=== PATIENT | male | born 1970 | race Caucasian/White ===

== ENCOUNTER 2017-03-05 12:12 | Emergency (ER) | payer MEDICARE ==
[~2017-03-05] VITALS: Ht 182.9 cm; Wt 80.0 kg
[2017-03-05 12:15] VITALS: BP 128/74; PULSE 82; RESP 16; TEMP 98.4; O2SAT 100
--- NOTE | 2017-03-05 12:51 | PD ---
HPI Chief Complaint: Oral / Dental Pain or Problem Time Seen by Provider: 12:50 Travel History International Travel<30 days: No Contact w/Intl Traveler<30days: No Traveled to known affect area: No History of Present Illness HPI 47 YO M presents to the ED for evaluation of 2 day history of dental pain and right-sided facial swelling. Patient endorses "terrible teeth." He denies any acute injury to the area. Denies fever, chills, nausea, vomiting, difficulties swallowing his own secretions. No treatment attempted home. He does not currently have a dentist. PFSH Social History Tobacco Use: Yes Allergies-Medications (Allergen,Severity, Reaction): Uncoded Allergies: MYCIN (Allergy, Intermediate, Rash, 03/05/17) Steroid(unknow) (Allergy, Unknown, 03/05/17) Reported Meds & Prescriptions Reported Meds & Active Scripts Active Penicillin V Potassium 500 Mg Tab 500 Mg PO Q6H 7 Days Ibuprofen 800 Mg Tab 800 Mg PO Q8H Reported Ibuprofen 400 Mg Tab 400 Mg PO DAILY Gabapentin 300 Mg Cap 300 Mg PO TID Review of Systems Except as stated in HPI: all other systems reviewed are Neg Physical Exam Narrative GENERAL: Well-nourished, well-developed white male in no acute distress. SKIN: Focused skin assessment warm/dry. HEAD: Normocephalic. EYES: No scleral icterus. No injection or drainage. ENT: Mucosa pink and moist. No erythema or exudates. No uvular edema. No uvular , palatal, or tonsillar deviation. Airway patent. DENTAL: Terrible overall dentition. Multiple missing and chipped teeth. Multiple dental caries. Erythema, edema and tenderness of the right-sided buccal mucosa. Mild swelling of the right cheek. No fluctuance or pointing or drainage noted. NECK: Supple, trachea midline. No JVD or lymphadenopathy. CARDIOVASCULAR: Regular rate and rhythm without murmurs, gallops, or rubs. RESPIRATORY: Breath sounds equal bilaterally. No accessory muscle use. GASTROINTESTINAL: Abdomen soft, non-tender, nondistended. MUSCULOSKELETAL: No cyanosis, or edema. BACK: Nontender without obvious deformity. No CVA tenderness. Data Data Last Documented VS Vital Signs Date Time Temp Pulse Resp B/P Pulse Ox O2 Delivery O2 Flow Rate FiO2 03/05/17 12:15 98.4 82 16 128/74 100 Orders Ibuprofen (Motrin) (03/05/17 13:15) Penicillin V Potassium (Veetids) (03/05/17 13:15) MDM Medical Decision Making Medical Screen Exam Complete: Yes Emergency Medical Condition: Yes Differential Diagnosis dental abscess versus dental caries versus facial cellulitis versus dental fracture versus other Narrative Course 47 YO M presents to the ED for evaluation of 2 day history of dental pain and right-sided facial swelling. Patient endorses "terrible teeth." Vitals reviewed. Exam consistent with dental abscess, no fluctuance noted. Patient was prescribed penicillin G 500 mg 3 times a day 7 days course of anti- inflammatories. First doses administered in the ED. He was provided outpatient dental resources. He is instructed to apply warm compresses, use warm saltwater gargles, take antibiotics and anti-inflammatories as prescribed, follow up with a dentist. He is stable and discharged home. Diagnosis Primary Impression: Dental abscess Referrals: Dentist Patient Instructions: Dental Abscess (ED), Dental Caries (ED), General Instructions Additional Instructions: Rest, hydrate. Take all antibiotics as prescribed, even if it comes resolved. Warm compresses and warm salt water mouth rinses a few times per day. 800 mg ibuprofen up to 3 times a day to reduce inflammation and pain. Follow-up with a dentist as discussed. Return to the ED for any urgent or emergent medical condition. Med/Other Pt SpecificInfo: Prescription(s) given Scripts Penicillin V Potassium 500 Mg [id number] Mg PO Q6H 7 Days Ref 0 Prov:Bessy Mancia MD 03/05/17 Ibuprofen 800 Mg [id number] Mg PO Q8H #15 TAB Ref 0 Prov:Bessy Mancia MD 03/05/17 Disposition: 01 DISCHARGE HOME Condition: Stable Betzy Rothman Mar 05, 2017 12:51
[2017-03-05] MEDS ORDERED: GABA300C5 PO (12:52)
[2017-03-05] MEDS ORDERED: IBUP400T20 PO (12:52)
[2017-03-05] MEDS ORDERED: CLIN1CAP5 PO (13:08)
[2017-03-05] MEDS ORDERED: IBUP800T23 PO (13:08)
[2017-03-05] MEDS ORDERED: PENI500T PO (13:10)
--- NOTE | 2017-03-05 13:13 | PD ---
Data Data Last Documented VS Vital Signs Date Time Temp Pulse Resp B/P Pulse Ox O2 Delivery O2 Flow Rate FiO2 03/05/17 12:15 98.4 82 16 128/74 100 Orders Ibuprofen (Motrin) (03/05/17 13:15) Penicillin V Potassium (Veetids) (03/05/17 13:15) MDM Supervised Visit with ABDULLAHI: Yes Narrative Course I, Dr. Mancia, have reviewed the advance practice practioner's documentation and am in agreement, met with the patient face to face, made the diagnosis, and the medical decision making was done by me. *My assessment and Findings: 47-year-old male here with complaint of dental pain and facial swelling. Exam is consistent with periapical and dental abscess with right sided facial swelling but no palpable abscess that it would be drainable on exam. No evidence of Neftaly's angina. We'll treat with antibiotics and discharged home with outpatient dental follow-up for extraction. Diagnosis Primary Impression: Dental abscess Referrals: Dentist Patient Instructions: General Instructions, Dental Abscess (ED), Dental Caries (ED) Additional Instruction: Rest, hydrate. Take all antibiotics as prescribed, even if it comes resolved. Warm compresses and warm salt water mouth rinses a few times per day. 800 mg ibuprofen up to 3 times a day to reduce inflammation and pain. Follow-up with a dentist as discussed. Return to the ED for any urgent or emergent medical condition. Scripts Penicillin V Potassium 500 Mg [id number] Mg PO Q6H 7 Days Ref 0 Prov:Bessy Mancia MD 03/05/17 Ibuprofen 800 Mg [id number] Mg PO Q8H #15 TAB Ref 0 Prov:Bessy Mancia MD 03/05/17 Disposition: 01 DISCHARGE HOME Condition: Stable Bessy Mancia MD Mar 05, 2017 13:13
[2017-03-05] MEDS ORDERED: IBUPROFEN 800 MG TAB PO ONE (13:15)
[2017-03-05] MEDS ORDERED: PENICILLIN V POTASSIUM 500 MG TAB PO ONE (13:15)
[2017-03-05] MEDS ORDERED: CLINDAMYCIN 150 MG CAP PO SCH (13:15)
== END 2017-03-05 13:31 | disposition home or self-care (01) ==
LOC: NEPD 12:12
DX: K04.7 Periapical abscess without sinus (principal); Z88.8 Allergy status to other drugs, medicaments and biological substances; Z79.899 Other long term (current) drug therapy
CPT/HCPCS: 99283